=== PATIENT | female | born 1975 | race Caucasian/White ===

== ENCOUNTER 2016-10-07 13:55 | Emergency (ER) | payer OTHER ==
[~2016-10-07] VITALS: Ht 165.1 cm; Wt 101.0 kg
[~2016-10-07 13:55] MED LIST: ABILIFY20 MG PO; ADDERALL XR 2020 MG PO; AMBIEN CR12.5 MG PO; BACTRIM,SEPT1 TABLET PO; BRINTELLIX20 MG PO; BUSPAR10 MG PO; CELEXA40 MG PO; CIPRO500 MG PO; CITALOPRAM HBR20 MG PO; CYMBALTA60 MG PO; DEPO-PROVER150 MG/ML IM; DITROPAN XL10 MG PO; FENOFIBRATE48 MG PO; FENOGLIDE40 MG PO; FEOSOL325 MG PO; FLEXERIL10 MG PO; GABAPENTIN600 MG PO; LASIX40 MG PO; LEVAQUIN750 MG PO; LIDOCREAM15 GM TP; LISINOPRIL10 MG PO; LISINOPRIL20 MG PO; LITHIUM CARBON300 M1 PO; LITHIUM CARBON300 MG PO; LORAZEPAM1 MG PO; MELOXICAM15 MG PO; MS CONTIN,ORAMO15 M1 PO; NEURONTIN600 MG PO; NEXIUM 40 MG VI40 MG IV; NEXIUM40 MG PO; NORCO 10/3251 TABLET PO; NORCO 7.5/321 TABLET PO; NORVASC5 MG PO; OS-CAL 500+D T1 EAC1 PO; OXYBUTYNIN CHLO10 MG PO; PREDNISONE10 MG PO; SEROQUEL12.5 MG PO; STRATTERA40 MG PO; TOPAMAX100 MG PO; TORADOL10 MG PO; VICODIN 5-3001 EACH PO; VICODIN HP 10-1 EACH PO; VICOPROFEN1 TABLET PO; WELLBUTRIN SR150 MG PO; XANAX1 MG PO; ZOHYDRO ER10 MG PO
[2016-10-07 14:39] LABS: HEMATOCRIT 39.8 % (36.0-46.0); MCH 29.6 PG (29.0-34.0); MCHC 32.9 G/DL (30.0-36.0); MCV 89.8 FL (83-99); MEAN PLAT.VOLUME 8.9 uM^3 (9.5-12.4); PLATELET COUNT 296 K/uL (156-360); RBC DIS.WIDTH-CV 12.5 % (11.8-14.6); RBC DIS.WIDTH-SD 40.9 % (39-53); RED BLOOD COUNT 4.43 M/uL (3.80-5.20); WHITE BLOOD COUNT 12.8 K/uL (4.1-10.2)
[2016-10-07 14:48] LABS: CHLORIDE 108 mEq/L (99-109); POTASSIUM 3.9 mEq/L (3.7-5.4); SODIUM 141 mEq/L (136-147)
[2016-10-07 14:49] LABS: GLUCOSE 121 mg/dL (70-99)
[2016-10-07 14:51] LABS: ANION GAP 14 MEQ/L (2-14)
[2016-10-07 14:53] LABS: GFR ESTIMATE (CALCULATED) > 59 mL/min/; SERUM ETHYL ALCOHOL < 10 mg/dL
[2016-10-07 14:54] LABS: UREA NITROGEN (BUN) 13 mg/dL (9-23)
[2016-10-07 15:01] LABS: COCAINE NEGATIVE (150 ng/mL); METHAMPHETAMINE NEGATIVE (500 ng/mL); OPIATES (MORPHINE) NEGATIVE (100 ng/mL); PHENCYCLIDINE NEGATIVE (25 ng/mL); THC CANNABINOIDS NEGATIVE (50 ng/mL)
[2016-10-07 15:02] LABS: ADD MEDTOX COMMENT Y; AMPHETAMINE PRESUMPTIVE POSITIVE (500 ng/mL); BARBITURATES NEGATIVE (200 ng/mL); BENZODIAZEPINES PRESUMPTIVE POSITIVE (150 ng/mL); INTERNAL CONTROLS VALID? YES; METHADONE NEGATIVE (200 ng/mL); OXYCODONE NEGATIVE (100 ng/mL); PROPOXYPHENE NEGATIVE (300 ng/mL); TRICYCLIC ANTIDEPRESSANTS PRESUMPTIVE POSITIVE (300 ng/mL)
[2016-10-07 15:25] LABS: BENZODIAZEPINES, URINE SCREEN POSITIVE (200 ng/mL)
[2016-10-07 16:45] VITALS: BP 147/90
== END 2016-10-07 16:33 | disposition home or self-care (01) ==
LOC: EME 13:55
DX: F32.9 Major depressive disorder, single episode, unspecified (principal); F31.32 Bipolar disorder, current episode depressed, moderate; F60.3 Borderline personality disorder; T42.4X6A Underdosing of benzodiazepines, initial encounter; T43.626A Underdosing of amphetamines, initial encounter; T42.6X6A Underdosing of other antiepileptic and sedative-hypnotic drugs, initial encounter; Z91.128 Patient's intentional underdosing of medication regimen for other reason; E11.9 Type 2 diabetes mellitus without complications; E78.5 Hyperlipidemia, unspecified; I10 Essential (primary) hypertension; K21.9 Gastro-esophageal reflux disease without esophagitis
CPT/HCPCS: 80048; 84999; 85027; 90839; 99281; 99285; G0480

== ENCOUNTER 2016-10-17 15:23 | Inpatient (IN) | payer OTHER ==
[~2016-10-17] VITALS: Ht 165.1 cm; Wt 106.5 kg
[2016-10-17 16:45] LABS: EOSINOPHIL (%) 1.6 % (0-5); EOSINOPHIL COUNT 0.1 K/uL (0-0.3); HEMATOCRIT 37.3 % (36.0-46.0); IMMATURE GRANULOCYTE (%) 0.4 % (0.0-0.7); INSTRUMENT ABS NEUTROPHIL CT 5.1 K/uL; LYMPHOCYTE COUNT 2.3 K/uL (1.0-2.8); MCH 29.6 PG (29.0-34.0); MCHC 33.5 G/DL (30.0-36.0); MCV 88.4 FL (83-99); MEAN PLAT.VOLUME 8.9 uM^3 (9.5-12.4); MONOCYTE (%) 4.3 % (3-12); MONOCYTE COUNT 0.3 K/uL (0-0.8); NEUTROPHIL COUNT 5.1 K/uL (1.8-6.4); PLATELET COUNT 281 K/uL (156-360); RBC DIS.WIDTH-CV 12.6 % (11.8-14.6); RBC DIS.WIDTH-SD 40.7 % (39-53); RED BLOOD COUNT 4.22 M/uL (3.80-5.20)
[2016-10-17 16:47] LABS: WHITE BLOOD COUNT 7.9 K/uL (4.1-10.2)
[2016-10-17 16:55] LABS: CHLORIDE 109 mEq/L (99-109); POTASSIUM 4.2 mEq/L (3.7-5.4); SODIUM 140 mEq/L (136-147)
[2016-10-17 16:58] LABS: GLUCOSE 93 mg/dL (70-99)
[2016-10-17 16:59] LABS: ANION GAP 10 MEQ/L (2-14)
[2016-10-17 17:00] LABS: TOTAL BILIRUBIN 0.8 mg/dL (0.0-1.0)
[2016-10-17 17:01] LABS: ALKALINE PHOSPHATASE 71 IU/L (3-129); SERUM ETHYL ALCOHOL < 10 mg/dL
[2016-10-17 17:02] LABS: GFR ESTIMATE (CALCULATED) > 59 mL/min/
[2016-10-17 17:03] LABS: UREA NITROGEN (BUN) 11 mg/dL (9-23)
[2016-10-17 17:10] LABS: QUANTITATIVE HCG < 4.0 MIU/ML
[2016-10-17 18:19] LABS: ADD MIUA? NO; BILIRUBIN NEGATIVE; BLOOD NEGATIVE; COLOR STRAW ((YELLOW)); GLUCOSE (STRIP) NEGATIVE; KETONES NEGATIVE; LEUKOCYTES NEGATIVE; NITRITE NEGATIVE; PROTEIN (STRIP) NEGATIVE; SPECIFIC GRAVITY 1.009 (1.000-1.030); UCUL ADDED? NO; UROBILINOGEN 0.2 MG/DL (0.2-1.0)
[2016-10-17 18:29] LABS: ADD MEDTOX COMMENT Y; AMPHETAMINE NEGATIVE (500 ng/mL); BARBITURATES NEGATIVE (200 ng/mL); BENZODIAZEPINES PRESUMPTIVE POSITIVE (150 ng/mL); COCAINE NEGATIVE (150 ng/mL); INTERNAL CONTROLS VALID? YES; METHADONE NEGATIVE (200 ng/mL); METHAMPHETAMINE NEGATIVE (500 ng/mL); OPIATES (MORPHINE) NEGATIVE (100 ng/mL); OXYCODONE NEGATIVE (100 ng/mL); PHENCYCLIDINE NEGATIVE (25 ng/mL); PROPOXYPHENE NEGATIVE (300 ng/mL); THC CANNABINOIDS NEGATIVE (50 ng/mL); TRICYCLIC ANTIDEPRESSANTS NEGATIVE (300 ng/mL)
[2016-10-17 19:27] LABS: BENZODIAZEPINES, URINE SCREEN POSITIVE (200 ng/mL)
[2016-10-17] MEDS ORDERED: FENOFIBRATE54 M1 PO (19:52)
[2016-10-17] MEDS ORDERED: BUPROPION XL300 MG PO (19:54)
[2016-10-17] MEDS ORDERED: XANAX1 MG PO (19:55)
[2016-10-17] MEDS ORDERED: DITROPAN XL10 MG PO (19:56)
[2016-10-17] MEDS ORDERED: AMBIEN CR12.5 MG PO (19:57)
[2016-10-17] MEDS ORDERED: FLONASE16 G1 BOTH NARES (19:57)
[2016-10-17] MEDS ORDERED: LYRICA100 MG PO (19:58)
[2016-10-17] MEDS ORDERED: DURAGESIC100 MCG TD (19:58)
[2016-10-17] MEDS ORDERED: ADDERALL XR 2020 MG PO (19:58)
[2016-10-17] MEDS ORDERED: SYNTHROID50 MCG PO (19:58)
[2016-10-17] MEDS ORDERED: LINZESS290 MCG PO (19:59)
[2016-10-17] MEDS ORDERED: LITHIUM CARBON300 MG PO (19:59)
[2016-10-17 20:52] VITALS: BP 139/90
[2016-10-17 20:55] VITALS: BP 139/90
[2016-10-17] MEDS ORDERED: LYRICA150 MG PO (21:49)
[2016-10-18 07:37] VITALS: BP 111/61
[2016-10-18] MEDS ORDERED: MIRTAZAPINE15 MG PO (10:32)
== END 2016-10-18 12:06 | disposition home or self-care (01) | DRG 885 ==
LOC: EME 15:23 → EDOF 19:20 → 1WEST 19:20
PROVIDERS: Emergency Medicine
DX: F33.9 Major depressive disorder, recurrent, unspecified (principal); G89.29 Other chronic pain; F51.04 Psychophysiologic insomnia; F41.9 Anxiety disorder, unspecified; E66.3 Overweight; Z68.38 Body mass index [BMI] 38.0-38.9, adult; K21.9 Gastro-esophageal reflux disease without esophagitis; M79.7 Fibromyalgia; M19.90 Unspecified osteoarthritis, unspecified site; E11.9 Type 2 diabetes mellitus without complications; E78.5 Hyperlipidemia, unspecified; I10 Essential (primary) hypertension
CPT/HCPCS: 80053; 81003; 84702; 84999; 85025; 90839; 99281; 99285; G0480

== ENCOUNTER 2016-10-29 15:55 | Emergency (ER) | payer OTHER ==
[~2016-10-29] VITALS: Ht 170.2 cm; Wt 106.5 kg
[~2016-10-29 15:55] MED LIST changes: +BUPROPION XL300 MG PO; +DURAGESIC100 MCG TD; +FENOFIBRATE54 M1 PO; +FLONASE16 G1 BOTH NARES; +LINZESS290 MCG PO; +LYRICA100 MG PO; +LYRICA150 MG PO; +MIRTAZAPINE15 MG PO; +SYNTHROID50 MCG PO
[2016-10-29 16:15] VITALS: BP 141/107
[2016-10-29 16:30] LABS: HEMATOCRIT 43.3 % (36.0-46.0); MCH 29.8 PG (29.0-34.0); MCHC 33.3 G/DL (30.0-36.0); MCV 89.5 FL (83-99); MEAN PLAT.VOLUME 8.8 uM^3 (9.5-12.4); PLATELET COUNT 284 K/uL (156-360); RBC DIS.WIDTH-CV 12.5 % (11.8-14.6); RBC DIS.WIDTH-SD 40.4 % (39-53); RED BLOOD COUNT 4.84 M/uL (3.80-5.20); WHITE BLOOD COUNT 8.9 K/uL (4.1-10.2)
[2016-10-29 16:39] LABS: CHLORIDE 102 mEq/L (99-109)
[2016-10-29 16:40] LABS: POTASSIUM 5.2 mEq/L (3.7-5.4); SODIUM 138 mEq/L (136-147)
[2016-10-29 16:41] LABS: GLUCOSE 104 mg/dL (70-99)
[2016-10-29 16:43] LABS: ANION GAP 11 MEQ/L (2-14)
[2016-10-29 16:44] LABS: SERUM ETHYL ALCOHOL < 10 mg/dL
[2016-10-29 16:45] LABS: GFR ESTIMATE (CALCULATED) > 59 mL/min/
[2016-10-29 16:46] LABS: UREA NITROGEN (BUN) 14 mg/dL (9-23)
[2016-10-29 16:53] LABS: QUANTITATIVE HCG < 4.0 MIU/ML
== END 2016-10-29 19:30 | disposition left against medical advice (07) ==
LOC: EME 15:55
DX: F32.9 Major depressive disorder, single episode, unspecified (principal); Z53.21 Procedure and treatment not carried out due to patient leaving prior to being seen by health care provider
CPT/HCPCS: 80048; 84702; 85027; G0480

== ENCOUNTER 2016-11-04 11:47 | Emergency (ER) | payer OTHER ==
[~2016-11-04] VITALS: Ht 165.1 cm; Wt 107.5 kg
[2016-11-04 14:10] LABS: HEMATOCRIT 39.7 % (36.0-46.0); MCH 29.4 PG (29.0-34.0); MCV 89.2 FL (83-99); MEAN PLAT.VOLUME 8.9 uM^3 (9.5-12.4); PLATELET COUNT 301 K/uL (156-360); RBC DIS.WIDTH-CV 12.5 % (11.8-14.6); RBC DIS.WIDTH-SD 40.9 % (39-53); RED BLOOD COUNT 4.45 M/uL (3.80-5.20); WHITE BLOOD COUNT 11.5 K/uL (4.1-10.2)
[2016-11-04 14:18] LABS: CHLORIDE 104 mEq/L (99-109); SODIUM 138 mEq/L (136-147)
[2016-11-04 14:19] LABS: POTASSIUM 3.9 mEq/L (3.7-5.4)
[2016-11-04 14:20] LABS: GLUCOSE 98 mg/dL (70-99)
[2016-11-04 14:22] LABS: ANION GAP 11 MEQ/L (2-14); TOTAL BILIRUBIN 0.7 mg/dL (0.0-1.0)
[2016-11-04 14:24] LABS: ALKALINE PHOSPHATASE 74 IU/L (3-129); GFR ESTIMATE (CALCULATED) > 59 mL/min/
[2016-11-04 14:25] LABS: UREA NITROGEN (BUN) 16 mg/dL (9-23)
[2016-11-04 14:33] LABS: QUANTITATIVE HCG < 4.0 MIU/ML
[2016-11-04 15:17] LABS: ADD MIUA? NO; BILIRUBIN NEGATIVE; BLOOD NEGATIVE; COLOR YELLOW ((YELLOW)); GLUCOSE (STRIP) NEGATIVE; KETONES NEGATIVE; LEUKOCYTES NEGATIVE; NITRITE NEGATIVE; PROTEIN (STRIP) NEGATIVE; SPECIFIC GRAVITY 1.013 (1.000-1.030); UCUL ADDED? NO; UROBILINOGEN 0.2 MG/DL (0.2-1.0)
[2016-11-04] MEDS ORDERED: MIRALAX17 GM PO (17:58)
[2016-11-04 18:33] VITALS: BP 142/99
== END 2016-11-04 20:16 | disposition home or self-care (01) ==
LOC: EME 11:47
DX: K59.00 Constipation, unspecified (principal); D72.829 Elevated white blood cell count, unspecified; E78.5 Hyperlipidemia, unspecified
CPT/HCPCS: 74020; 80053; 81003; 84702; 85027; 99281; 99284